=== PATIENT | male | born 1970 | race Caucasian/White ===

== ENCOUNTER → 2017-03-24 22:38 | Emergency (ER) | payer SELFPAY ==
[2017-03-25 00:22] VITALS: BP 128/70
--- NOTE | 2017-03-25 07:49 | RAD ---
HISTORY: Left rib pain COMPARISONS: April 27, 2015 VIEWS: 7, Frontal view of the chest with frontal and oblique views of the left hemithorax FINDINGS: There is no displaced rib fracture or pneumothorax. The visualized lungs are clear. IMPRESSION: THERE IS NO DISPLACED RIB FRACTURE OR PNEUMOTHORAX.
--- NOTE | 2017-03-27 19:42 | ED ---
HPI Chest Pain - HPI Summary HPI Summary: Patient presents with left sided rib pain after falling on a slip n slide a few hours ago. Patient denies difficulty breathing. Denies hitting head, LOC or other symptoms. Afebrile. Left sided lower rib pain is at 8/10, worse with breathing and better with rest. Patient hasn't taken any medications for relief. Denies blood thinners or health problems. - History of Current Complaint Chief Complaint: EDGeneral Time Seen by Provider: 03/25/17 00:28 Hx Obtained From: Patient Onset/Duration: Started Hours Ago Timing: Constant Initial Severity: Moderate Current Severity: Moderate Pain Intensity: 9 Pain Scale Used: 0-10 Numeric Chest Pain Location: Discrete at: - rib pain Chest Pain Radiates: No Aggravating Factor(s): Deep Breaths Alleviating Factor(s): Nothing Associated Signs and Symptoms: Positive: Negative Related History: Recent Trauma - Allergy/Home Medications Allergies/Adverse Reactions: Allergies Allergy/AdvReac Type Severity Reaction Status Date / Time No Known Allergies Allergy Verified 03/24/17 22:45 PMH/Surg Hx/FS Hx/Imm Hx Previously Healthy: Yes Endocrine/Hematology History: Denies: Hx Anticoagulant Therapy, Hx Diabetes, Hx Thyroid Disease Cardiovascular History: Denies: Hx Hypertension, Hx Pacemaker/ICD Respiratory History: Reports: Other Respiratory Problems/Disorders - PNA AN . Denies: Hx Asthma, Hx Chronic Obstructive Pulmonary Disease (COPD) History: Denies: Hx Renal Disease Sensory History: Denies: Hx Hearing Aid Neurological History: Denies: Hx Dementia, Hx Seizures Psychiatric History: Reports: Hx of Violent Episodes Against Others Denies: Hx Eating Disorder, Hx Panic Disorder, Hx Substance Abuse - Surgical History Surgery Procedure, Year, and Place: SCLERAL BUCKLE RIGHT 2009- *no metallic device per dr. guzman's xray report 03/09/2016). TOOK OUT LYMPH NODES IN GROIN AREA 1987 AND 1988. - Immunization History Date of Tetanus Vaccine: t Hx Pertussis Vaccination: No Immunizations Up to Date: Unable to Obtain/Confirm Infectious Disease History: No Infectious Disease History: Denies: Hx Hepatitis, Hx Human Immunodeficiency Virus (HIV), Traveled Outside the [place] in Last 30 Days - Family History Known Family History: Positive: Hypertension - Social History Occupation: Employed Full-time Lives: With Family Alcohol Use: Daily Alcohol Amount: 3-4/day Hx Substance Use: No Substance Use Type: Reports: None Hx Tobacco Use: Yes Smoking Status (MU): Heavy Every Day Tobacco Smoker Review of Systems Constitutional: Negative Eyes: Negative Cardiovascular: Negative Positive: Shortness Of Breath Positive: no symptoms reported, see HPI Positive: Arthralgia - left rib pain Skin: Negative Psychological: Normal All Other Systems Reviewed And Are Negative: Yes Physical Exam Triage Information Reviewed: Yes Vital Signs On Initial Exam: Initial Vitals Temp Pulse Resp BP Pulse Ox 97.6 F 72 16 121/81 97 03/24/17 22:40 03/24/17 22:40 03/24/17 22:40 03/24/17 22:40 03/24/17 22:40 Vital Signs Reviewed: Yes Appearance: Positive: Well-Appearing, Well-Nourished Skin: Positive: Warm, Skin Color Reflects Adequate Perfusion Head/Face: Positive: Normal Head/Face Inspection Eyes: Positive: Normal, EOMI Neck: Positive: Supple, Nontender, No Lymphadenopathy Respiratory/Lung Sounds: Positive: Clear to Auscultation, Breath Sounds Present Cardiovascular: Positive: Normal, RRR, Pulses are Symmetrical in both Upper and Lower Extremities Musculoskeletal: Positive: Normal, Strength/ROM Intact, Pain @ - on palpation over the left lower ribcage Neurological: Positive: Sensory/Motor Intact, Alert, Oriented to Person Place, Time Psychiatric: Positive: Normal AVPU Assessment: Alert - [place] Coma Scale Best Eye Response: 4 - Spontaneous Best Motor Response: 6 - Obeys Commands Best Verbal Response: 5 - Oriented Diagnostics - Vital Signs Vital Signs Temp Pulse Resp BP Pulse Ox 03/25/17 00:28 97.7 F 67 16 128/70 97 03/25/17 00:15 97.7 F 67 16 128/70 97 03/24/17 22:40 97.6 F 72 16 121/81 97 - Laboratory Lab Statement: Any lab studies that have been ordered have been reviewed, and results considered in the medical decision making process. Chest Pain Course/Dx - Course Course Of Treatment: Patient sent to xray. Negative for fx. Patient feeling better and discharged home with care instructions. - Chest Pain Differential Diagnosis/HQI/PQRI: Chest Wall, Other: - rib pain, rib fracture, chest pain - Diagnoses Provider Diagnoses: Rib pain on left side Discharge - Discharge Plan Condition: Stable Disposition: HOME Patient Education Materials: Rib Contusion (ED) Referrals: Elva Timmons MD [Primary Care Provider] - Additional Instructions: Ibuprofen 600mg three times daily for pain Return if symptoms become worse
== END | disposition home or self-care (01) ==
LOC: ED 22:38
DX: R07.81 Pleurodynia (principal); F17.210 Nicotine dependence, cigarettes, uncomplicated
CPT/HCPCS: 99281

== ENCOUNTER 2019-10-12 01:07 | Emergency (ER) | payer MEDICAID, OTHER ==
--- NOTE | 2019-10-12 02:17 | ED ---
GI/ HPI - HPI Summary HPI Summary: This patient is a 49 year old M presenting to [facility] by EMS with a chief complaint of incontinence of stool prior to arrival. he admits to drinking many drinks tonight to celebrate his birthday. Pt denies any blood in stool. Pt was "not feeling good" and was worried about the incontinence, as similar symptoms have not previously occurred. he is a poor historian. Patient reports coughing, abdominal pain (lasting a few months) and hematuria x1 (morning of 10/11/19). Pt vomits every morning. states it is like phlegm from coughing. for the past few months he has had numbness in his arms. Pt drinks alcohol daily. Pt has Hepatitis C. Pt denies fevers. - History of Current Complaint Chief Complaint: EDBleedingDisorder Time Seen by Provider: 10/12/19 01:59 Stated Complaint: BLEEDING PER EMS Hx Obtained From: Patient Onset/Duration: Started Minutes Ago Timing: Intermittent Current Severity: Mild Pain Intensity: 2 Location of Pain: Diffuse, Radiates to: - back Associated Signs and Symptoms: Positive: Vomiting, Blood w/Stool, Abdominal Pain Aggravating Factor(s): Nothing Alleviating Factor(s): Nothing - Allergy/Home Medications Allergies/Adverse Reactions: Allergies Allergy/AdvReac Type Severity Reaction Status Date / Time No Known Allergies Allergy Verified 10/12/19 01:13 Home Medications: Home Medications NK [No Home Medications Reported] 10/12/19 [History Confirmed 10/12/19] PMH/Surg Hx/FS Hx/Imm Hx Endocrine/Hematology History: Denies: Hx Anticoagulant Therapy, Hx Diabetes, Hx Thyroid Disease Cardiovascular History: Denies: Hx Hypertension, Hx Pacemaker/ICD Respiratory History: Reports: Other Respiratory Problems/Disorders - PNA AN INFANT. Denies: Hx Asthma, Hx Chronic Obstructive Pulmonary Disease (COPD) History: Denies: Hx Renal Disease Sensory History: Denies: Hx Hearing Aid Neurological History: Denies: Hx Dementia, Hx Seizures Psychiatric History: Reports: Hx of Violent Episodes Against Others Denies: Hx Eating Disorder, Hx Panic Disorder, Hx Substance Abuse - Surgical History Surgery Procedure, Year, and Place: SCLERAL BUCKLE RIGHT 2009- *no metallic device per dr. guzman's xray report 03/09/2016). TOOK OUT LYMPH NODES IN GROIN AREA 1987 AND 1988. - Immunization History Date of Tetanus Vaccine: t Infectious Disease History: Yes Infectious Disease History: Denies: Hx Hepatitis, Hx Human Immunodeficiency Virus (HIV), Traveled Outside the [place] in Last 30 Days - Family History Known Family History: Positive: Hypertension, Other - Cancer - Social History Alcohol Use: Daily Alcohol Amount: 3-4/day Hx Substance Use: No Substance Use Type: Reports: None Hx Tobacco Use: Yes Smoking Status (MU): Heavy Every Day Tobacco Smoker - Additional Comments History Additional Comments: PMHx: Hepatitis C Home Medications Medication Instructions Recorded Confirmed Type NK [No Home Medications Reported] 10/12/19 10/12/19 History Review of Systems Negative: Fever Positive: Vomiting Positive: hematuria, incontinence Positive: Numbness All Other Systems Reviewed And Are Negative: Yes Physical Exam - Summary Physical Exam Summary: General: Well-developed, Well-nourished male. No acute distress. HEENT: Normocephalic, Atraumatic. Eyes: Conjuctiva normal, PERRL. Oropharynx: Clear, mucous membranes moist, (-) exudates. Neck: Soft, FROM, (-) lymphadenopathy, (-) thyromegaly, (-) JVD. Cardiovascular: Normal sinus rhythm, (-) murmur. Lungs: Clear to auscultation bilaterally (-) wheezes, (-) rales, (-) rhonchi. Abdomen: Soft, Mild tenderness in RLQ and suprapubic area, non-distended, (-) organomegaly, normal bowel sounds. Back: (-) CVA tenderness Extremities: No edema. Skin: Warm, dry, (-) rash. Neuro: Alert and oriented x3,move all extremities equally. No ataxia. No gait disturbance. No sensory deficit. No amnesia. Slow in response, obviously intoxicated slurring words. Psychiatric: Mood normal, affect sleepy. Triage Information Reviewed: Yes Vital Signs On Initial Exam: Initial Vitals Temp Pulse Resp BP Pulse Ox 97.4 F 82 18 161/91 95 10/12/19 01:10 10/12/19 01:10 10/12/19 01:10 10/12/19 01:10 10/12/19 01:10 Vital Signs Reviewed: Yes Procedures - Sedation Patient Received Moderate/Deep Sedation with Procedure: No Diagnostics - Vital Signs Vital Signs Temp Pulse Resp BP Pulse Ox 10/12/19 01:16 77 143/93 95 10/12/19 01:15 76 94 10/12/19 01:10 97.4 F 82 18 161/91 95 - Laboratory Result Diagrams: 10/12/19 02:26 10/12/19 02:26 Lab Statement: Any lab studies that have been ordered have been reviewed, and results considered in the medical decision making process. GIGU Course/Dx - Course Course Of Treatment: 49 year old male presents from home by ambulance after episode of fecal incontinence. patient is obviously acutely intoxicated. states he went to go to the bathroom and lost control of his bowels. no blood. patient is poor historian, gives multiple chronic complaints. no acute complaints that appear to be related to possible fecal incontinence. alcohol level 270. patient' s physical exam otherwise normal. awaiting sobriety and reevaluation. patient signed out at change of shift. - Diagnoses Provider Diagnoses: Elevated LFTs, Acute alcohol intoxication, Fecal incontinence Discharge ED - Sign-Out/Discharge Documenting (check all that apply): Sign-Out Patient Signing out patient TO: Matheus Herrera - pending sobriety Receiving patient FROM: Maricarmen Hdez - Discharge Plan Referrals: Elva Timmons MD [Primary Care Provider] - - Attestation Statements Document Initiated by Biankaibe: Yes Documenting Scribe: Massiel Stewart Provider For Whom Courtney is Documenting (Include Credential): Dr. Maricarmen Hdez MD Scribe Attestation: Massiel Walls scribed for Dr. Maricarmen Hdez MD on 10/12/19 at 0646. Scribe Documentation Reviewed: Yes Provider Attestation: The documentation as recorded by the Massiel branch accurately reflects the service I personally performed and the decisions made by me, Dr. Maricarmen Hdez MD Status of Scribe Document: Viewed
[2019-10-12 02:34] LABS: ABS Basophils 0.1 10^3/ul (0-0.2); ABS Eosinophils 0.7 10^3/ul (0-0.6); ABS Lymphocytes 2.3 10^3/ul (1.0-4.8); ABS Monocytes 0.6 10^3/ul (0-0.8); ABS Neutrophils 2.9 10^3/ul (1.5-7.7); Eosinophil % 10.6 %; Hematocrit 43 % (42-52); Hemoglobin 15.1 g/dL (14.0-18.0); Lymphocyte % 34.9 %; Mean Corpuscular HGB Conc 35 g/dL (31-36); Mean Corpuscular Hemoglobin 34 pg (27-31); Mean Corpuscular Volume 98 fL (80-94); Mean Platelet Volume 7.7 fL (7.4-10.4); Nucleated Red Blood Cells % 0.1; Platelet Count 187 10^3/uL (150-450); Red Blood Count 4.39 10^6 /uL (4.18-5.48); Red Cell Distribution Width 12 % (10-15); White Blood Count 6.7 10^3/uL (3.5-10.8)
[2019-10-12 02:49] LABS: Albumin 3.9 g/dL (3.2-5.2); BUN/Creatinine Ratio 12.3 (8-20); Calcium 8.8 mg/dL (8.6-10.3); EGFR African American 138.8 (>60); EGFR Non-African American 114.7 (>60); Globulin 3.9 g/dL (2-4); Potassium 3.7 mmol/L (3.5-5.0); Total Bilirubin 0.9 mg/dL (0.2-1.0); Total Protein 7.8 g/dL (6.4-8.9)
[2019-10-12 02:51] LABS: Urine Appearance Clear; Urine Bilirubin Negative (Negative); Urine Blood 2+ (Negative); Urine Color Straw; Urine Glucose Negative (Negative); Urine Ketones Negative (Negative); Urine Nitrite Negative (Negative); Urine Protein Negative (Negative); Urine Specific Gravity 1.001 (1.010-1.030); Urine Urobilinogen Negative (Negative)
[2019-10-12 02:56] LABS: Urine Bacteria Absent (Absent); Urine Red Blood Cell Trace(0-2/hpf) (Absent); Urine White Blood Cell Trace(0-5/hpf) (Absent)
[2019-10-12 03:04] LABS: Urine Benzodiazepine Screen None Detected (None Detect); Urine Opiates Screen None Detected (None Detect)
--- NOTE | 2019-10-12 07:05 | ED ---
Progress - Progress Note Progress Note: This patient is a sign-out from Dr. Maricarmen Hdez to Dr. Matheus Herrera at 0700 on 10/12/2019 at shift change pending sobriety. Re-Evaluation - Re-Evaluation First Eval Re-Evaluation Time: 10:28 Comment: Patient is able to ambulate around the department without difficulty. Patient will be discharged home with dx of alcohol intoxication. Patient understands and agrees with this plan. Course/Dx - Course Course Of Treatment: After he woke up, Mr. Blackwood was able to ambulate about the department without any difficulty. He was able to urinate with no concerns and was no longer incontinent. I recommended follow-up closely with his PCP. - Diagnoses Provider Diagnoses: Alcohol intoxication Discharge ED - Sign-Out/Discharge Documenting (check all that apply): Patient Departure - Discharge, Receiving Sign-Out Receiving patient FROM: Maricarmen Hdez - Discharge Plan Condition: Stable Disposition: HOME Patient Education Materials: Alcohol Intoxication (ED), Abuse of Alcohol (ED) Referrals: Elva Timmons MD [Primary Care Provider] - 3 Days Additional Instructions: Please follow-up with your primary care physician in 2-3 days. PLEASE RETURN TO THE ER FOR WORSENING OR CHANGING SYMPTOMS. It was a pleasure taking care of you today. - Billing Disposition and Condition Condition: STABLE Disposition: Home - Attestation Statements Document Initiated by Courtney: Yes Documenting Scribe: Jimmy Marcano Provider For Whom Courtney is Documenting (Include Credential): Matheus Herrera MD Scribe Attestation: Kavita, Jimmy Marcano, scribed for Matheus Herrera MD on 10/12/19 at 1614. Scribe Documentation Reviewed: Yes Provider Attestation: The documentation as recorded by the Jimmy branch accurately reflects the service I personally performed and the decisions made by me, Matheus Herrera MD Status of Scribe Document: Viewed
[2019-10-12 10:44] VITALS: BP 108/61
== END 2019-10-12 10:43 | disposition home or self-care (01) ==
LOC: ED 01:07
DX: R79.89 Other specified abnormal findings of blood chemistry (principal); F10.129 Alcohol abuse with intoxication, unspecified; Y90.8 Blood alcohol level of 240 mg/100 ml or more; R15.9 Full incontinence of feces; R11.10 Vomiting, unspecified; R31.9 Hematuria, unspecified; F17.200 Nicotine dependence, unspecified, uncomplicated
CPT/HCPCS: 36415; 80053; 80307; 80320; 81003; 81015; 83605; 85025; 87077; 87086; 99284; G0480

== ENCOUNTER 2019-10-30 19:08 | Emergency (ER) | payer OTHER ==
--- NOTE | 2019-10-30 20:04 | ED ---
Upper Extremity Pain - HPI Summary HPI Summary: 49-year-old male presents with right pinky injury for the past 3 weeks ago. He states that he hit ended up hitting his hand on a wall. He has not been able uses pinky properly since. He has not followed up with anyone since. Denies any numbness or tingling. No previous fracture to the area. Is right-handed. Has no medical conditions. He denies any numbness or tingling. - History of Current Complaint Chief Complaint: EDExtremityUpper Stated Complaint: R PINK INJURY PER PT Time Seen by Provider: 10/30/19 19:47 - Allergies/Home Medications Allergies/Adverse Reactions: Allergies Allergy/AdvReac Type Severity Reaction Status Date / Time No Known Allergies Allergy Verified 10/30/19 19:26 PMH/Surg Hx/FS Hx/Imm Hx Endocrine/Hematology History: Denies: Hx Anticoagulant Therapy, Hx Diabetes, Hx Thyroid Disease Cardiovascular History: Denies: Hx Hypertension, Hx Pacemaker/ICD Respiratory History: Reports: Other Respiratory Problems/Disorders - PNA AN INFANT. Denies: Hx Asthma, Hx Chronic Obstructive Pulmonary Disease (COPD) History: Denies: Hx Renal Disease Sensory History: Denies: Hx Hearing Aid Neurological History: Denies: Hx Dementia, Hx Seizures Psychiatric History: Reports: Hx of Violent Episodes Against Others Denies: Hx Eating Disorder, Hx Panic Disorder, Hx Substance Abuse - Surgical History Surgery Procedure, Year, and Place: SCLERAL BUCKLE RIGHT 2009- *no metallic device per dr. guzman's xray report 03/09/2016). TOOK OUT LYMPH NODES IN GROIN AREA 1987 AND 1988. - Immunization History Date of Tetanus Vaccine: t Infectious Disease History: No Infectious Disease History: Denies: Hx Hepatitis, Hx Human Immunodeficiency Virus (HIV), Traveled Outside the [place] in Last 30 Days - Family History Known Family History: Positive: Hypertension, Other - Cancer - Social History Alcohol Use: Daily Alcohol Amount: 3-4/day Hx Substance Use: No Substance Use Type: Reports: None Hx Tobacco Use: Yes Smoking Status (MU): Heavy Every Day Tobacco Smoker Review of Systems Negative: Fever Negative: Chest Pain Negative: Shortness Of Breath Positive: Myalgia - right pinky finger injury All Other Systems Reviewed And Are Negative: Yes Physical Exam Triage Information Reviewed: Yes Vital Signs On Initial Exam: Initial Vitals Temp Pulse Resp BP Pulse Ox 99.8 F 80 16 158/91 97 10/30/19 19:23 10/30/19 19:23 10/30/19 19:23 10/30/19 19:23 10/30/19 19:23 Vital Signs Reviewed: Yes Appearance: Positive: Well-Appearing Skin: Positive: Warm, Dry Head/Face: Positive: Normal Head/Face Inspection Eyes: Positive: Normal, Conjunctiva Clear ENT: Positive: Pharynx normal Respiratory/Lung Sounds: Positive: Clear to Auscultation, Breath Sounds Present Cardiovascular: Positive: Normal, RRR Musculoskeletal: Positive: Limited @ - right pinky, Other - good pulses, capillary refill<2secs, deformity to right pinky finger Neurological: Positive: Normal Psychiatric: Positive: Normal Procedures - Sedation Patient Received Moderate/Deep Sedation with Procedure: No - Splinting hand Location: right hand Hand-Made Type: orthoglass Splint: ulnar Pre-Proc Neuro Vasc Exam: normal Post-Proc Neuro Vasc Exam: normal Splint Applied by Provider: Verona Ospina - Vital Signs Vital Signs Temp Pulse Resp BP Pulse Ox 10/30/19 19:23 99.8 F 80 16 158/91 97 - Laboratory Lab Statement: Any lab studies that have been ordered have been reviewed, and results considered in the medical decision making process. - Radiology hand Radiology Interpretation Completed By: ED Physician Summary of Radiographic Findings: right 5th metacarpel fracture Course/Dx - Course Course Of Treatment: 49-year-old male presents with right pinky injury for the past 3 weeks ago. He states that he hit ended up hitting his hand on a wall. He has not been able uses pinky properly since. He has not followed up with anyone since. Denies any numbness or tingling. No previous fracture to the area. Is right-handed. Has no medical conditions. He denies any numbness or tingling. On exam has deformity noted to her pinky. neurovascular Intact. X- ray shows fifth metacarpal fracture. Placed in splint. Will have follow-up with orthopedic. Patient understands and agrees the plan. - Diagnoses Differential Diagnosis/HQI/PQRI: Positive: Fracture (Closed), Strain, Sprain Provider Diagnoses: Fracture of fifth metacarpal bone Discharge ED - Sign-Out/Discharge Documenting (check all that apply): Patient Departure - Discharge Plan Condition: Good Disposition: HOME Patient Education Materials: Hand Fracture (ED) Referrals: Elva Timmons MD [Primary Care Provider] - Shemar Mcintosh MD [Medical Doctor] - Additional Instructions: Keep splint on area and keep dry Call ortho office tomorrow to set up appointment for follow up Use ibuprofen or tyenlol for pain every 6 hours Ice, elevate Return to ED if develop any new or worsening symptoms - Billing Disposition and Condition Condition: GOOD Disposition: Home
[2019-10-30 21:16] VITALS: BP 138/83
== END 2019-10-30 20:30 | disposition home or self-care (01) ==
LOC: ED 19:08
DX: S62.346A Nondisplaced fracture of base of fifth metacarpal bone, right hand, initial encounter for closed fracture (principal); W22.09XA Striking against other stationary object, initial encounter; Y92.9 Unspecified place or not applicable; F17.200 Nicotine dependence, unspecified, uncomplicated
CPT/HCPCS: 99282